=== PATIENT | male | born 1990 | race Caucasian/White ===

== ENCOUNTER 2021-06-23 10:05 | Emergency (ER) | payer BC, OTHER ==
[2021-06-23 11:22] LABS: #Basophils 0.1 10x3/uL (0.0-0.2); #Eosinphils 0.3 10x3/uL (0.0-0.5); #Monocytes 0.4 10x3/uL (0.0-1.1); %Basophils 0.7 % (0.0-2.0); %Eosinophils 3.1 % (0.0-6.0); %Lymphocytes 30.2 % (18.0-47.0); %Neutrophils 60.6 % (40.0-75.0); Hemoglobin 15.9 g/dL (13.5-17.5); Mean Corpuscular HGB CONC 33.6 g/dL (32.0-36.0); Mean Corpuscular Hemoglobin 27.9 pg (27.0-33.0); Mean Platelet Volume 9.4 fl (7.4-10.4); Platelet Count 294 10x3/uL (150-450); RBC Distribution Width 12.5 % (11.5-14.5); White Blood Cell (WBC) Count 8.3 10x3/uL (3.5-10.5)
[2021-06-23 11:36] LABS: ALT (SGPT) 46 U/L (8-55); AST (SGOT) 22 U/L (5-34); Albumin 4.6 g/dL (3.5-5.0); Alkaline Phosphatase 43 U/L (40-110); Anion Gap 12 mmol/L (10-20); BUN (Urea Nitrogen) 14 mg/dL (8.9-20.6); Bilirubin, Total 0.9 mg/dL (0.2-1.2); Calc. Creatinine Clearance 0 mL/min (70-130); Carbon Dioxide 27 mmol/L (22-29); Chloride 103 mmol/L (98-107); Globulin 2.9 g/dL (2.4-3.5); Glucose 119 mg/dL (70-105); Potassium 4.3 mmol/L (3.5-5.1); Protein, Total 7.5 g/dL (6.0-8.3); Sodium 138 mmol/L (136-145)
[2021-06-23] MEDS ORDERED: Meclizine HCl 25 MG TAB ONE (12:38)
== END 2021-06-23 14:53 | disposition home or self-care (01) ==
LOC: CSHERS 10:05
DX: R42 Dizziness and giddiness (principal); R07.9 Chest pain, unspecified; F17.290 Nicotine dependence, other tobacco product, uncomplicated; R29.700 NIHSS score 0
CPT/HCPCS: 36415; 71045; 80053; 84484; 85025; 93005